=== PATIENT | female | born 1990 | race Caucasian/White ===

== ENCOUNTER 2023-04-03 09:06 | Emergency (ER) | payer OTHER, SELFPAY ==
--- NOTE | 2023-04-03 09:18 | ED.FEMALEGU ---
HPI - Female Genitourinary General Chief complaint: Urogenital-Female Stated complaint: Female Urogenital Time Seen by Provider: 04/03/23 09:20 Source: patient Mode of arrival: ambulatory Limitations: no limitations History of Present Illness HPI Narrative: Chata is a 33-year-old female patient presenting to the clinic today with complaints of possible urinary tract infection. She is 28 weeks . States that she developed some blood in her urine and urinary frequency this morning. She also is having some lower pelvic pressure. Denies any vaginal bleeding. She denies any flank pain, fever, or chills. Related Data Home Medications Medication Instructions Recorded Confirmed ondansetron 4 mg disintegrating 4 mg PO PRN PRN Nausea And Vomiting 04/03/23 04/03/23 tablet pantoprazole 40 mg tablet,delayed 40 mg PO DAILY 04/03/23 04/03/23 release vit#24-iron amino acid 1 tablet PO DAILY 04/03/23 04/03/23 chelat-folic acid 30 mg-975 mcg tablet Allergies Allergy/AdvReac Type Severity Reaction Status Date / Time No Known Allergies Allergy Verified 04/03/23 09:53 Review of Systems Review of Systems: Pertinent positives per HPI. Patient denies any fever, chills, rash, headache, visual changes, dizziness, cough, runny nose, sore throat, shortness of breath, chest pain, palpitations, nausea, vomiting, diarrhea, constipation, abdominal pain. PMFSH Comments At the time of my signature, I reviewed and agree with the nursing past medical, surgical, social, and family history. There is no relevant family history pertinent to the patient complaint. Exam Narrative: General: Well-developed, well nourished, in no apparent distress. Head: Normocephalic, atraumatic. Cardio: Regular rate and rhythm, s1 and s2 normal, no murmur appreciated. Resp: Clear to auscultation bilaterally, no rhonchi, rales, wheezing or rubs. Abdomen: Soft, pliable, , bowel sounds present in all quadrants, tender to palpation over the bladder, no organomegly, no CVAT tenderness. Course Course Emergency Course: Portions of this record may have been created with voice recognition software. Level of Care: Express Care Visit Vital Signs Vital signs: Vital signs reviewed MDM - Female Genitourinary MDM Narrative Medical decision making narrative: At the time of visit patient is resting on the exam table. Urinalysis was performed and shows 3+ blood and 1+ protein. Patient is currently so I will treat her empirically with for urinary tract infection. Prescription for Augmentin was sent to the pharmacy and supportive measures were discussed with the patient she voiced understanding discharge instructions and agrees to treatment plan. At the time patient was being discharged in the EMR system went down so a paper prescription and downtime paperwork was given to the patient for discharge. Differential Diagnosis Differential diagnosis: Likely urinary tract infection and cystitis Discharge Plan Discharge Clinical Impression: Urinary tract infection Qualifiers: Urinary tract infection type: acute cystitis Hematuria presence: with hematuria Qualified Code(s): N30.01 - Acute cystitis with hematuria Patient Disposition: Home, Self-Care Condition: Stable Instructions: Antibiotic Form, Urinary Tract Infection in (ED) Additional Instructions: UA shows 1+ protein and 3+ blood. We will send for culture. Take Augmentin as prescribed. Increase fluids and stay well hydrated Wipe front to back. May use wet wipes. Avoid tub baths If sexually active- pee before and after intercourse. Wear cotton panties Avoid tight clothing up against the genitals Follow up with your PCP in 1 week if symptoms persist. Follow-up/Referrals: Laura Medina [Other] Time of Disposition: 09:38 Quality NIHSS Nursing Documentation ED NIHSS nursing documentation: reviewed/agree
[2023-04-03 09:55] VITALS: BP 106/63; PULSE 77; RESP 16; TEMP 36.5; O2SAT 100
== END 2023-04-03 09:38 | disposition home or self-care (01) ==
PROVIDERS: Emergency Provider Nurse Practitioner Family
DX: O23.13 Infections of bladder in pregnancy, third trimester (principal); N30.91 Cystitis, unspecified with hematuria; Z3A.28 28 weeks gestation of pregnancy
CPT/HCPCS: 81003; 87086; 87088; 99203; G0463

== ENCOUNTER 2023-11-27 11:36 | Outpatient (CLI) | payer OTHER, SELFPAY ==
--- NOTE | 2023-11-27 11:49 | ECG_ITS ---
SEE SCANNED COPY FOR CONFIRMED REPORT. MTDD
== END 2023-11-27 11:37 | disposition home or self-care (01) ==
DX: R53.83 Other fatigue (principal)
CPT/HCPCS: 93005